=== PATIENT | female | born 1975 | race Caucasian/White ===

== ENCOUNTER 2016-12-21 04:45 | Emergency (ER) | payer SELFPAY ==
[~2016-12-21] VITALS: Ht 167.6 cm; Wt 98.0 kg
[2016-12-21 04:52] VITALS: Ht 167.6 cm; Wt 98.0 kg
[2016-12-21] MEDS ORDERED: SOD CHLORIDE 0.9% 1,000 ML IV STA (05:04)
[2016-12-21] MEDS ORDERED: KETOROLAC 30 MG INJ IV STA (05:04)
[2016-12-21] MEDS ORDERED: ONDANSETRON 4 MG INJ IV STA (05:04)
[2016-12-21] MEDS ORDERED: ACETAMINOPHEN 500 MG TAB PO STA (05:08)
[2016-12-21 05:11] LABS: URINE BLOOD (Dip) POC 2+ (NEGATIVE)
--- NOTE | 2016-12-21 05:15 | ERD ---
ER Documentation Chief Complaint Date/Time DATE: 12/21/16 TIME: 05:07 Chief Complaint sudden right lower back/flank pain approx 1 hr ago w/ shakiness, nausea (COLT SANCHEZ NP) HPI 41-year-old female presents here in emergency department for complaint of right flank pain chills nausea that started 2 days ago, got worse again tonight. Patient states that she had the right flank pain 2 days ago, after taking naproxen, she felt much better, tonight, she started to have chills, feverish, is complaining of right lower back pain, she showed pain 6/and scale, not better or worse with anything. Patient denies any hematuria or dysuria. Patient denies any cough runny nose or nasal congestion. (COLT SANCHEZ NP) ROS All systems reviewed and are negative except as per history of present illness. (COLT SANCHEZ NP) Medications Home Meds Active Scripts Ondansetron (Ondansetron Odt) 4 Mg Tab.rapdis, 4 MG PO Q8 Y for NAUSEA AND/OR VOMITING, #30 TAB Prov:COLT SANCHEZ NP 12/21/16 Phenazopyridine Hcl* (Pyridium*) 200 Mg Tab, 200 MG PO TID Y for URINARY PAIN, # 6 TAB Prov:COLT SANCHEZ NP 12/21/16 Ibuprofen* (Motrin*) 600 Mg Tab, 600 MG PO Q6H Y for PAIN AND OR ELEVATED TEMP, #30 TAB Prov:COLT SANCHEZ NP 12/21/16 Ciprofloxacin Hcl* (Ciprofloxacin Hcl*) 500 Mg Tablet, 500 MG PO BID for 10 Days , TAB Prov:COLT SANCHEZ NP 12/21/16 Reported Medications [none] Unknown Strength No Conflict Check 12/21/16 Allergies Allergies: Coded Allergies: No Known Drug Allergies (Verified Allergy, Unknown, 12/21/16) PMhx/Soc Medical and Surgical Hx: pt denies Medical Hx History of Surgery: Yes (tonsillectomy, section) (COLT SANCHEZ NP) FmHx Family History: No coronary disease, No diabetes, No other (COLT SANCHEZ NP) Physical Exam Vitals Vital Signs Date Time Temp Pulse Resp B/P Pulse Ox O2 Delivery O2 Flow Rate FiO2 12/21/16 06:13 100.2 12/21/16 04:52 100.5 106 20 159/91 100 (ERIC BUSTOS PA-C) Physical Exam GENERAL: The patient is well developed and appropriate for usual state of health, in no apparent distress. CHEST: Clear to auscultation bilaterally. There are no rales, wheezes or rhonchi. HEART: Regular rate and rhythm. No murmurs, clicks, rubs or gallops. No S3 or S4. ABDOMEN: Soft, nontender and nondistended. Good bowel sounds. No rebound or guarding. No gross peritonitis. No gross organomegaly or masses. No Cabrera sign or McBurney point tenderness. BACK: No midline or flank tenderness. EXTREMITIES: Equal pulses bilaterally. There is no peripheral clubbing, cyanosis or edema. No focal swelling or erythema. Full range of motion. Grossly neurovascularly intact. NEURO: Alert and oriented. Cranial nerves 2-12 intact. Motor strength in all 4 extremities with 5/5 strength. Sensation grossly intact. Normal speech and gait. SKIN: There is no apparent rash or petechia. The skin is warm and dry. HEMATOLOGIC AND LYMPHATIC: There is no evidence of excessive bruising or lymphedema. No gross cervical, axillary, or inguinal lymphadenopathy. (COLT SANCHEZ NP) Result Diagram: 12/21/16 0512 12/21/16 0512 Results 24 hrs Laboratory Tests Test 12/21/16 05:00 12/21/16 05:12 12/21/16 05:17 Urine Color YELLOW Urine Clarity SLIGHTLY CLOUDY Urine pH 7.0 Urine Specific [place] 1.014 Urine Ketones NEGATIVEmg/dL Urine Nitrite POSITIVEmg/dL Urine Bilirubin NEGATIVEmg/dL Urine Urobilinogen NEGATIVEmg/dL Urine Leukocyte Esterase 3+Romana/ul Urine Microscopic RBC 14/HPF Urine Microscopic WBC > 182/HPF Urine Squamous Epithelial Cells FEW/HPF Urine Transitional Epithelial Cells FEW/HPF Urine Amorphous Crystals FEW/HPF Urine Bacteria FEW/HPF Urine Mucus FEW/HPF Urine Hemoglobin 1+mg/dL Urine Glucose NEGATIVEmg/dL Urine Total Protein 1+mg/dl White Blood Count 6.910^3/ul Red Blood Count 3.9810^6/ul Hemoglobin 11.8g/dl Hematocrit 35.8% Mean Corpuscular Volume 89.9fl Mean Corpuscular Hemoglobin 29.6pg Mean Corpuscular Hemoglobin Concent 33.0g/dl Red Cell Distribution Width 12.3% Platelet Count 75091^3/UL Mean Platelet Volume 9.7fl Neutrophils % 81.5% Lymphocytes % 15.5% Monocytes % 1.5% Eosinophils % 0.9% Basophils % 0.3% Nucleated Red Blood Cells % 0.0/100WBC Neutrophils # 5.610^3/ul Lymphocytes # 1.110^3/ul Monocytes # 0.110^3/ul Eosinophils # 0.110^3/ul Basophils # 0.010^3/ul Nucleated Red Blood Cells # 0.010^3/ul Sodium Level 145mmol/L Potassium Level 3.9mmol/L Chloride Level 100mmol/L Carbon Dioxide Level 27mmol/L Anion Gap 22 Blood Urea Nitrogen 13mg/dl Creatinine 0.89mg/dl Glucose Level 96mg/dl Calcium Level 9.3mg/dl Total Bilirubin 0.8mg/dl Direct Bilirubin 0.00mg/dl Indirect Bilirubin 0.8mg/dl Aspartate Amino Transf (AST/SGOT) 15IU/L Alanine Aminotransferase (ALT/SGPT) 26IU/L Alkaline Phosphatase 90IU/L Total Protein 7.7g/dl Albumin 4.2g/dl Globulin 3.50g/dl Albumin/Globulin Ratio 1.20 Lipase 60U/L Bedside Urine pH (LAB) 7.0 Bedside Urine Protein (LAB) 1+ Bedside Urine Glucose (UA) Negative Bedside Urine Ketones (LAB) Negative Bedside Urine Blood 2+ Bedside Urine Nitrite (LAB) Positive Bedside Urine Leukocyte Esterase (L 2+ Current Medications Medications (Trade) Dose Ordered Sig/Gene Route PRN Reason Start Time Stop Time Status Last Admin Dose Admin Sodium Chloride (NS) 1,000 ml @ 1,000 mls/hr Q1H STAT IV 12/21/16 05:04 12/21/16 06:03 DC 12/21/16 05:20 Ondansetron HCl (Zofran Inj) 4 mg ONCE STAT IV 12/21/16 05:04 12/21/16 05:06 DC 12/21/16 05:20 Ketorolac Tromethamine (Toradol) 30 mg ONCE STAT IV 12/21/16 05:04 12/21/16 05:06 DC 12/21/16 05:20 Acetaminophen 500 mg 500 mg ONCE STAT PO 12/21/16 05:08 12/21/16 05:17 DC 12/21/16 05:20 Ceftriaxone Sodium (Rocephin) 50 ml @ 100 mls/hr ONCE ONCE IVPB 12/21/16 05:30 12/21/16 05:59 DC 12/21/16 05:52 DIAGNOSTIC IMAGING REPORT Patient: DELVIS MYERS : 1975 Age: 41 Sex: F MR #: [id number] DOS: 12/21/16 0504 Ordering MD: COLT SANCHEZ NP Location: [facility] Room/Bed: PROCEDURE: CT Abdomen and Pelvis without contrast. CLINICAL INDICATION: Abdominal pain. TECHNIQUE: Routine abdominopelvic CT was performed without intravenous contrast and reformatted in the axial, coronal, sagittal planes. Radiation dose: CTDIvol (mGy) = 19.9; total DLP mGy-cm = 1145. One or more of the following radiation dose techniques were used: -Automated exposure control. -Adjust of the mA and/or kV according to patient size. -Use of iterative reconstruction technique. COMPARISON: None. FINDINGS: Right renal pelviectasis with mild periureteric inflammation without urolithiasis. Left kidney and collecting system are within normal limits. Postsurgical changes identified along the greater curvature of the stomach compatible with a gastric sleeve operation. There is a small hiatal hernia. Limited unenhanced images of the liver, gallbladder, biliary system, spleen demonstrate no gross abnormality. No abnormal bowel wall thickening or dilatation. Appendix is normal. Pelvic viscera is grossly unremarkable. No adnexal cyst or mass. No free fluid or fluid collection. Lung bases are clear. IMPRESSION: Evaluation is limited by absence of intravenous contrast which limits diagnostic sensitivity. Right renal pelviectasis with mild periureteric inflammation without urolithiasis; correlate clinically for an ascending urinary infection/ pyelonephritis. RPTAT: EE .Arron Mi MD, MD Date Time Electronically viewed and signed by .Arron Mi MD, MD on 12/21/2016 06:22 .C/ CC: COLT SANCHEZ NP (ERIC BUSTOS PA-C) Results 24 hrs Patient was given medication for pain here in emergency department, after treatment, patient verbalized feeling much better. Patient's pain is improved.Patient was given Zofran here in the emergency department. After treatment, patient was able to tolerate po fluids here in the emergency department without any vomiting. There is no signs and symptoms of dehydration. Patient was given medicines for fever control here in the emergency department. After treatment, patient temperature improved and lower. Patient appears well and is hemodynamically stable. Normal saline IV bolus was given here in emergency department for rehydration, patient tolerated IV fluids. IV Rocephin was given here in emergency department for treatment for pyelonephritis. (COLT SANCHEZ NP) Procedures/MDM Medical Decision Making: Patient symptoms is likely consistent with pyelonephritis. No symptoms of any obstructive stone or septic stone There is low suspicion for abdominal emergencies at this time. Patients abdominal exam is normal at this time. Patients radiology exam does not show any abdominal emergencies at this time. There is low suspicion for appendicitis, cholecystitis , abdominal aortic aneurysms or peritonitis at this time. There is low suspicion for sepsis. Patient appears well and is hemodynamically stable. Disposition: Home. Condition: Stable Prescription ciprofloxacin, Pyridium, ibuprofen, zofran Instructions: Patient is advised to take medications as prescribed. Patient is advised to rest, increase fluid intake and do good perineal hygiene. Patient is advised that if symptoms are worse, severe abdominal pain, uncontrolled vomiting , high fever, severe flank pain, worst signs and symptoms, to return to the emergency department immediately. Otherwise, patient can follow up with primary care doctor in 5-7 days. (COLT SANCHEZ NP) Departure Diagnosis: Primary Impression: Pyelonephritis Condition: Stable Patient Instructions: Pyelonephritis Additional Instructions: Patient is advised to take medications as prescribed. Patient is advised to rest , increase fluid intake and do good perineal hygiene. Patient is advised that if symptoms are worse, severe abdominal pain, uncontrolled vomiting, high fever , severe flank pain, worst signs and symptoms, to return to the emergency department immediately. Otherwise, patient can follow up with primary care doctor in 5-7 days. COLT SANCHEZ NP Dec 21, 2016 05:15 ERIC BUSTOS PA-C Dec 21, 2016 06:22
[2016-12-21] MEDS ORDERED: PHEN-538 PO (05:22)
[2016-12-21] MEDS ORDERED: CIPR500T4 PO (05:22)
[2016-12-21] MEDS ORDERED: IBUP-1542 PO (05:22)
[2016-12-21] MEDS ORDERED: ONDA4TAB14 PO (05:22)
[2016-12-21 05:29] LABS: BASOPHILS % 0.3 % (0.0-2.0); EOSINOPHILS # 0.1 10^3/ul (0.0-0.5); EOSINOPHILS % 0.9 % (0.0-7.0); HEMATOCRIT 35.8 % (37.0-47.0); HEMOGLOBIN 11.8 g/dl (12.0-16.0); LYMPHOCYTES # 1.1 10^3/ul (0.8-2.9); LYMPHOCYTES % 15.5 % (15.0-51.0); MEAN CORPUSCULAR HEMOGLOBIN 29.6 pg (29.0-33.0); MEAN CORPUSCULAR VOLUME 89.9 fl (82.0-101.0); MEAN PLATELET VOLUME 9.7 fl (7.4-10.4); MONOCYTE # 0.1 10^3/ul (0.3-0.9); MONOCYTES % 1.5 % (0.0-11.0); NEUTROPHIL # 5.6 10^3/ul (1.6-7.5); NEUTROPHILS % 81.5 % (39.0-77.0); PLATELET COUNT 233 10^3/UL (140-415); RED BLOOD COUNT 3.98 10^6/ul (4.20-5.40); RED CELL DISTRIBUTION WIDTH 12.3 % (11.5-14.5); WHITE BLOOD COUNT 6.9 10^3/ul (4.8-10.8)
[2016-12-21] MEDS ORDERED: CEFTRIAXONE 1 GM/50 ML (PMX) 50 ML IVPB ONE (05:30)
[2016-12-21 05:45] LABS: ADD UMIC YES; UR AMORPHOUS CRYSTAL FEW /HPF (NONE SEEN); UR ASCORBIC ACID NEGATIVE (NEGATIVE); UR BACTERIA FEW /HPF (NONE SEEN); UR BILIRUBIN (Dip) NEGATIVE (NEGATIVE); UR BLOOD (Dip) 1+ mg/dL (NEGATIVE); UR CLARITY SLIGHTLY CLOUDY (CLEAR); UR COLOR YELLOW (YELLOW); UR GLUCOSE (Dip) NEGATIVE (NEGATIVE); UR KETONES (Dip) NEGATIVE (NEGATIVE); UR LEUKOCYTE ESTERASE (Dip) 3+ Leu/ul (NEGATIVE); UR MUCUS FEW /HPF (NONE SEEN); UR NITRITE (Dip) POSITIVE (NEGATIVE); UR RBC 14 /HPF (0-5); UR SPECIFIC GRAVITY (Dip) 1.014 (1.003-1.030); UR SQUAMOUS EPITHELIAL CELL FEW /HPF (FEW); UR TOTAL PROTEIN (Dip) 1+ mg/dl (NEGATIVE); UR TRANSITIONAL EPI CELL FEW /HPF (NONE SEEN); UR UROBILINOGEN (Dip) NEGATIVE (NEGATIVE); UR WBC CLUMPS FEW /HPF (NONE SEEN)
[2016-12-21 05:54] LABS: ALBUMIN 4.2 g/dl (3.3-4.9); ALBUMIN/GLOBULIN RATIO 1.2; BILIRUBIN,INDIRECT 0.8 mg/dl (0-1.1); BILIRUBIN,TOTAL 0.8 mg/dl (0.2-1.3); CALCIUM 9.3 mg/dl (8.4-10.2); CREATININE 0.89 mg/dl (0.44-1.00); POTASSIUM 3.9 mmol/L (3.5-5.1); TOTAL PROTEIN 7.7 g/dl (6.1-8.1)
--- NOTE | 2016-12-21 06:17 | RADRPT ---
PROCEDURE: CT Abdomen and Pelvis without contrast. CLINICAL INDICATION: Abdominal pain. TECHNIQUE: Routine abdominopelvic CT was performed without intravenous contrast and reformatted in the axial, coronal, sagittal planes. Radiation dose: CTDIvol (mGy) = 19.9; total DLP mGy-cm = 1145. One or more of the following radiation dose techniques were used: -Automated exposure control. -Adjust of the mA and/or kV according to patient size. -Use of iterative reconstruction technique. COMPARISON: None. FINDINGS: Right renal pelviectasis with mild periureteric inflammation without urolithiasis. Left kidney and collecting system are within normal limits. Postsurgical changes identified along the greater curvature of the stomach compatible with a gastric sleeve operation. There is a small hiatal hernia. Limited unenhanced images of the liver, gallbladder, biliary system, spleen demonstrate no gross abn ormality. No abnormal bowel wall thickening or dilatation. Appendix is normal. Pelvic viscera is grossly unremarkable. No adnexal cyst or mass. No free fluid or fluid collection . Lung bases are clear. IMPRESSION: Evaluation is limited by absence of intravenous contrast which limits diagnostic sensitivity. Right renal pelviectasis with mild periureteric inflammation without urolithiasis; correlate clinica lly for an ascending urinary infection/pyelonephritis. RPTAT: EE .Arron Mi MD, MD Date Time Electronically viewed and signed by .Arron Mi MD, on 12/21/2016 06:22 .C/
[2016-12-21 06:53] VITALS: BP 116/82; PULSE 92; RESP 19; TEMP 98.8
== END 2016-12-21 06:53 | disposition home or self-care (01) ==
LOC: FTE 04:45
DX: N12 Tubulo-interstitial nephritis, not specified as acute or chronic (principal); R11.0 Nausea
CPT/HCPCS: 36415; 74176; 80053; 81001; 83690; 85025; 87086; 96374; 96375; 99285; J0696; J1885; J2405; J7030; 81003